=== PATIENT | male | born 1990 | race Hispanic/Latino ===

== ENCOUNTER 2017-10-21 00:19 | Emergency (ER) | payer SELFPAY ==
[~2017-10-21] VITALS: Ht 167.6 cm; Wt 73.0 kg
[2017-10-21] MEDS ORDERED: PHENYTOIN SODIUM INJ 50 MG/ML 2 ML VIAL IV STA (00:57)
[2017-10-21] MEDS ORDERED: ACETAMINOPHEN 325 MG TAB PO ONE (01:45)
[2017-10-21 02:26] VITALS: BP 118/83
== END 2017-10-21 02:30 | disposition home or self-care (01) ==
LOC: FSED 00:19
DX: G40.409 Other generalized epilepsy and epileptic syndromes, not intractable, without status epilepticus (principal); F41.1 Generalized anxiety disorder
CPT/HCPCS: 99283; J1165